=== PATIENT | female | born 1970 | race Two or more races ===

== ENCOUNTER 2023-07-30 11:40 | Emergency (ER) | payer MEDICAID, OTHER ==
[~2023-07-30] VITALS: Ht 154.9 cm; Wt 102.1 kg
[2023-07-30 14:06] VITALS: BP 177/77; PULSE 103; RESP 18; TEMP 98.4; O2SAT 96
[2023-07-30] MEDS ORDERED: CEPH500C PO (14:17)
[2023-07-30] MEDS ORDERED: PROM1SOL4 PO (14:17)
[2023-07-30] MEDS ORDERED: PRED20TA2 PO (14:17)
== END 2023-07-30 14:21 | disposition home or self-care (01) ==
LOC: ER 11:40
DX: J01.90 Acute sinusitis, unspecified (principal); J20.9 Acute bronchitis, unspecified
CPT/HCPCS: 71046